=== PATIENT | male | born 1965 | race African-American/Black ===

== ENCOUNTER 2019-06-03 12:14 | Emergency (ER) | payer SELFPAY ==
[~2019-06-03] VITALS: Ht 190.5 cm; Wt 111.1 kg
[2019-06-03] MEDS ORDERED: SIMVASTATIN5 MG ORAL (12:41)
[2019-06-03] MEDS ORDERED: LISINOPRIL5 MG ORAL (12:41)
[2019-06-03] MEDS ORDERED: Isovue-300 100ml vial INJ PRN (13:00)
[2019-06-03 13:41] LABS: BASOPHILS % (AUTO) 0.6 % (0.0-2.0); EOSINOPHILS % (AUTO) 6.7 % (0.0-3.0); HEMATOCRIT 48.5 % (42.0-52.0); LYMPHOCYTES % (AUTO) 18.7 % (20.0-45.0); MEAN CORPUSCULAR VOLUME 88 FL (80-99); MONOCYTES % (AUTO) 9.2 % (1.0-10.0); NEUTROPHILS % (AUTO) 64.7 % (45.0-75.0); PLATELET COUNT 316 K/UL (150-450); RED BLOOD COUNT 5.49 M/UL (4.70-6.10); RED CELL DISTRIBUTION WIDTH 11.2 % (11.6-14.8); WHITE BLOOD COUNT 6.6 K/UL (4.8-10.8)
[2019-06-03 13:47] LABS: ANION GAP 9 mmol/L (5-15); BLOOD UREA NITROGEN 16 mg/dL (7-18); CALCIUM 9.4 MG/DL (8.5-10.1); CARBON DIOXIDE 26 MMOL/L (21-32); CHLORIDE 104 MMOL/L (98-107); CREATININE 1.4 MG/DL (0.55-1.30); POTASSIUM 3.4 MMOL/L (3.5-5.1); SODIUM 139 MMOL/L (136-145)
[2019-06-03 13:50] LABS: INR 1.1 (0.9-1.1)
[2019-06-03 14:00] LABS: ALANINE AMINOTRANSFERASE 15 U/L (12-78); ALBUMIN 3.6 G/DL (3.4-5.0); ALBUMIN/GLOBULIN RATIO 0.9 (1.0-2.7); ALKALINE PHOSPHATASE 263 U/L (46-116); ASPARTATE AMINO TRANSFERASE 15 U/L (15-37); BILIRUBIN,TOTAL 0.7 MG/DL (0.2-1.0); CKMB 2.3 NG/ML (0.0-3.6); CREATINE KINASE 155 U/L (26-308)
[2019-06-03 14:12] VITALS: BP 138/86
[2019-06-03 14:30] LABS: APPEARANCE,URINE CLEAR; BILIRUBIN, URINE NEGATIVE (NEGATIVE); COLOR,URINE YELLOW; GLUCOSE, URINE (UA) NEGATIVE (NEGATIVE); KETONES,URINE NEGATIVE (NEGATIVE); LEUKOCYTE ESTERASE ,URINE 1+ (NEGATIVE); NITRITE,URINE NEGATIVE (NEGATIVE); PH,URINE 6 (4.5-8.0); PROTEIN,URINE 1+ (NEGATIVE); UROBILINOGEN,URINE NORMAL MG/DL (0.0-1.0)
--- NOTE | 2019-06-03 14:40 | NUR ---
ED Nurse Note: Patient presents to ER due to nausea, diarrhea without blood for the past few days. Patient states he started having symptoms after eating pizza. Reports no travel hx. Reports no abdminal pain, N/V or fever or chills. Patient relaxing and talking to mom without facial grimacing or guarding.
--- NOTE | 2019-06-03 15:20 | Diagnostic Imaging Report ---
Clinical Indication: Abdominal pain Technique: No oral contrast utilized, per emergency room physician request IV administration nonionic contrast. Venous phase spiral acquisition obtained through the abdomen and pelvis. Multiplanar reconstructions were generated. Total dose length product 994.42 mGycm. CTDIvol(s) 17.25 mGy. Dose reduction achieved using automated exposure control Comparison: none Findings: Lack of enteric contrast limits assessment of the GI tract. The appendix is normal. There are small colonic diverticula. No evidence of diverticulitis. No small bowel distention. No free or loculated intraperitoneal gas or fluid is evident. The distal esophagus, stomach are unremarkable. The duodenum demonstrates a tiny superolateral diverticulum. There is a small fat-containing umbilical hernia The included lung bases are clear. The bones demonstrate a small well-circumscribed 1.3 cm fluid attenuation lesion within the right iliac bone which demonstrates a sclerotic rim, benign in appearance. There are mild degenerative changes of the lumbar facets. The bones are otherwise unremarkable. The liver demonstrates a few scattered subcentimeter low-attenuation lesions which are too small to characterize. The gallbladder, bile ducts, pancreas, spleen, adrenals, right kidney are unremarkable. The left kidney demonstrates lower pole subcentimeter low-attenuation lesions which are too small to characterize. No retroperitoneal or mesenteric mass or adenopathy. No pelvic mass or adenopathy. Impression: Limited assessment of the GI tract, due to lack of enteric contrast administration No definite acute abnormality Colonic diverticulosis. No evidence of diverticulitis Subcentimeter low-attenuation liver and left renal lesions, too small to characterize, most likely benign simple cysts. No further follow-up necessary Incidental findings as noted, including minimal lumbar facet arthrosis, benign-appearing right iliac bone lesion, small fat-containing umbilical hernia, tiny duodenal diverticulum The CT scanner at [facility] is accredited by the [employer] and the scans are performed using protocols designed to limit radiation exposure to as low as reasonably achievable to attain images of sufficient resolution adequate for diagnostic evaluation.
--- NOTE | 2019-06-03 15:24 | Emergency Room Report ---
History of Present Illness General Chief Complaint: Diarrhea Source: Patient Present Illness HPI 54-year-old male with history of hypertension currently controlled with lisinopril here complaining of 1 week of continuous multiple bouts of nonbloody diarrhea that started after eating pizza. Patient denies abdominal pain however reports that he had one episode of nonbloody emesis. Denies fever and chills, shortness of breath, chest pain, palpitation, dizziness and headache. Patient denies any recent travel or use of new medication. Patient denies drinking alcohol, drug use, smoking. Denies any surgical history. Denies any urinary symptoms. Allergies: Coded Allergies: No Known Allergies (Unverified , 06/03/19) Patient History Past Medical History: see triage record Past Surgical History: unable to obtain Pertinent Family History: none Immunizations: UTD Reviewed Nursing Documentation: PMH: Agreed; PSxH: Agreed Nursing Documentation-PM Past Medical History: No History, Except For Hx Hypertension: Yes Review of Systems All Other Systems: negative except mentioned in HPI Physical Exam Vital Signs Date Time Temp Pulse Resp B/P (MAP) Pulse Ox O2 Delivery O2 Flow Rate FiO2 06/03/19 12:34 97.9 93 20 130/91 (104) 96 Room Air Sp02 EP Interpretation: reviewed, normal General Appearance: normal inspection, well appearing, no apparent distress, alert, GCS 15 Head: normocephalic, atraumatic Eyes: bilateral eye normal inspection, bilateral eye PERRL ENT: normal ENT inspection, hearing grossly normal, normal pharynx Neck: normal inspection, full range of motion, supple Respiratory: normal inspection, chest non-tender, lungs clear, normal breath sounds, no wheezing Cardiovascular #1: normal inspection, normal peripheral pulses, regular rate, rhythm, no edema, no murmur Gastrointestinal: normal inspection, non tender, soft, no mass, no organomegaly , no peritonitis, no bruit, non-distended, no guarding, no hernia, other - No McBurney's or Rovsing's no Mercedes sign Rectal: deferred Genitourinary: no CVA tenderness Musculoskeletal: normal inspection, back normal, digits/nails normal, gait/ station normal Neurologic: normal inspection, alert, oriented x3, responsive, normal gait Psychiatric: normal inspection, judgement/insight normal Skin: normal color, normal turgor Lymphatic: normal inspection, no adenopathy Medical Decision Making PA Attestation All my diagnosis and treatment plans were reviewed ad discussed with my supervising physician Dr. Amaro Diagnostic Impression: Primary Impression: Acute infectious diarrhea ER Course 54-year-old male with history of hypertension currently controlled with lisinopril here complaining of 1 week of continuous multiple bouts of nonbloody diarrhea that started after eating pizza. Patient denies abdominal pain however reports that he had one episode of nonbloody emesis. Denies fever and chills, shortness of breath, chest pain, palpitation, dizziness and headache. Patient denies any recent travel or use of new medication. Patient denies drinking alcohol, drug use, smoking. Denies any surgical history. Denies any urinary symptoms. Ddx considered but are not limited to: appendicitis, cholecystis, gastritis, gastroenteritis, UTI, pyelonephritis, SBO, diverticulitis, influenza with GI manifestation, DC, acute infectious diarrhea Vital signs: are WNL, pt. is afebrile H&PE are most consistent with: Acute infectious diarrhea ORDERS: abdominal CT, abdominal pain set, EKG, omeprazole, Zofran ED INTERVENTIONS: NS bolus, Zofran, Pepcid DISCHARGE: At this time pt. is stable for d/c to home. Will provide printed patient care instructions, and any necessary prescriptions. Care plan and follow up instructions have been discussed with the patient prior to discharge. At this time patient to follow-up with her primary care provider for stool culture, ova and parasite, and H. pylori testing as no more acute condition noted patient to increase oral hydration and stable at time of discharge with stable vital signs. EKG Diagnostic Results Rate: normal Rhythm: NSR ST Segments: no acute changes Chest X-Ray Diagnostic Results Chest X-Ray Diagnostic Results : Chest X-Ray Ordered: Yes # of Views/Limited/Complete: 1 View Indication: Other EP Interpretation: Yes PA Xray: Interpretation reviewed, by supervising MD, and agrees with findings. Interpretation: no consolidation, no effusion, no pneumothorax Impression: No acute disease Electronically Signed by: Naila Ayoub PA-C CT/MRI/US Diagnostic Results CT/MRI/US Diagnostic Results : Imaging Test Ordered: abdominal CT with contrast Impression Within normal limits Last Vital Signs Date Time Temp Pulse Resp B/P (MAP) Pulse Ox O2 Delivery O2 Flow Rate FiO2 7/26/19 14:12 97.8 57 16 138/86 98 Room Air Disposition: HOME, SELF-CARE Condition: Stable Scripts Omeprazole (OMEPRAZOLE) 20 Mg Tablet. 20 MG ORAL DAILY, #21 TAB Prov: Naila Ventura 06/03/19 Ondansetron (Zofran) 4 Mg Tablet 4 MG ORAL Q6H PRN for Nausea & Vomiting, #12 TAB Prov: Naila Ventura 06/03/19 Referrals: NON PHYSICIAN (PCP) Patient Instructions: Diarrhea, Adult Additional Instructions: Take medication as directed follow-up with your primary provider for culturing of your stool and be tested for H. pylori as you may be having a bacterial infection. At this time no further action is needed to be taken the emergency room your CT scan is within normal limits and no acute condition suggesting of the cause of your diarrhea. Keep a BRAT diet entailing banana, rice, applesauce , piece of toast avoid eating spicy and acidic food. Increase her oral hydration specially electrolyte water Naila Ventura Jun 03, 2019 15:24
[2019-06-03] MEDS ORDERED: ZOFRAN4 M1 ORAL (15:26)
[2019-06-03] MEDS ORDERED: OMEPRAZOLE20 M3 ORAL (15:26)
[2019-06-03 15:41] VITALS: BP 118/59
--- NOTE | 2019-06-03 15:42 | NUR ---
ER DISCHARGE NOTE: Patient is cleared to be discharged per ERMD with mom, pt is aox4, on room air, with stable vital signs. pt was given dc and prescription instructions, pt was able to verbalize understanding, pt id band and iv site removed without complications. pt is able to ambulate with steady gait. pt took all belongings.
== END 2019-06-03 15:44 | disposition home or self-care (01) ==
LOC: EMR 12:50
DX: A09 Infectious gastroenteritis and colitis, unspecified (principal); K57.30 Diverticulosis of large intestine without perforation or abscess without bleeding; I10 Essential (primary) hypertension; K42.9 Umbilical hernia without obstruction or gangrene
CPT/HCPCS: 36415; 74177; 80053; 81003; 82550; 82553; 83690; 84484; 85025; 85610; 85730; 86850; 86900; 86901; 93005; 96361; 96374; 96375; 99284; J2405; Q9967; S0028